=== PATIENT | female | born 1980 | race Caucasian/White ===

== ENCOUNTER 2024-07-27 11:44 | Inpatient (IN) ==
--- NOTE | 2024-07-27 12:38 | Emergency Department Note ---
Impression & Plan Vaginal bleeding ED Provider Note HISTORY OF PRESENT ILLNESS: Patient is a 44-year-old female presenting with vaginal bleeding. Patient had a laparoscopic hysterectomy on 07/12/2024. Reports she been doing well postoperatively until this morning when she had bright red blood start "pouring out of me." She states that she had a little bit of spotting yesterday but when she was getting around for the morning she felt like blood was dripping down her legs and she got on the commode. She states that it was bright red and filled the toilet bowl. She was able to get a pad on with paper towels stuffed into her underwear and stuff towels in between her legs to get to the hospital. She denies any anticoagulation or antiplatelet use. She only soaked through the pad and not through the towels. Denies any lightheadedness or dizziness. Denies any abdominal pain, nausea or vomiting. Patient reports she recently was on antibiotics for a urinary tract infection. ROS: as above PHYSICAL EXAM: Constitutional: Patient appears in no acute distress. HENT: Head: Normocephalic and atraumatic. Eyes: EOMI, PERRL Mouth/Throat: Mucous membranes moist. Neck: Trachea midline. Neck supple. Cardiovascular: RRR, No murmurs, rubs or gallops. Intact distal pulses. Pulmonary/Chest: No respiratory distress. Breath sounds clear and equal bilaterally. No wheezes or rales. Abdominal: Abdomen soft, no tenderness, rebound or guarding. Musculoskeletal: No edema, tenderness or deformity noted. Skin: Warm and dry. No rash, erythema, pallor or cyanosis Psychiatric: Appropriate mood and affect for situation. Neurological: Alert and keenly responsive. CN II-XII grossly intact, moving all extremities equally and fully. MDM: - Vitals signs showed tachycardia - History obtained via patient. History as above. - Chronic conditions affecting care: none - Differential diagnoses include, but are not limited to: post op hematoma; post op abscess; cellulitis; UTI - Order placed for continuous cardiac monitoring. At this time, monitor showed rate of 101 bpm with normal sinus rhythm, per my interpretation. - External medical records reviewed. Operative report dated 07/12/2024 was reviewed. Patient had a robotic assisted laparoscopic hysterectomy and bilateral salpingectomy. - Patient was evaluated by OB, Dr. Escalera who performed a pelvic exam and requested the patient have laboratory and CT imaging workup to rule out a potential collection from her procedure. - Laboratory workup interpreted by myself showed normal WBC; stable electrolytes - CT abdomen/pelvis with IV contrast showed "stable exam with postsurgical inflammatory changes in the low pelvis extending in the vaginal stump adjacent sigmoid colon. Serpiginous small fluid collection is persistent in the recto vesicle space which could represent a postoperative seroma or abscess." - Dr. Escalera down in ER to reassess patient. Offered the patient discharge with oral antibiotics vs admission, patient felt more comfortable with plan for admission for monitoring given her amount of bleeding earlier. Patient to be admitted to OB. IV Zosyn was ordered. ASSESSMENT AND PLAN: Diagnosis: Vaginal bleeding Plan: Admit Past Med/Surg History Problem List (Updated 07/27/24 @ 14:43 by Jo Mayberry MD) Vaginal bleeding (Acute) Vaginal cuff cellulitis Postoperative fever S/P hysterectomy (Acute) Enterovirus infection (Acute) UTI (urinary tract infection) (Acute) Menorrhagia with regular cycle (Acute) Medical History Thyroid nodule monitored, biopsy negative Menorrhagia with regular cycle Seasonal allergies Right ovarian cyst echogenic area seen on ovary resolved Endometrial mass SM fibroid Surgical History Hx of biopsy (07/2023) thyroid nodule, benign H/O dilation and curettage (2022) resection of SM fibroid S/P wisdom tooth extraction S/P tonsillectomy Family History Other No family history of adverse response to anesthesia Denies family history of Ovarian cancer Breast cancer Colorectal cancer Uterine cancer Social History Smoking Status: Never smoker Second Hand Exposure: No; Do You Dip or Chew Tobacco: No; Hx Alcohol Use: Yes Hx Substance Use: No Preferred Language: Serbian Communication 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 Beliefs That Will Affect Care: Hoahaoism Hoahaoism Beliefs: [employer] marital status: Current Living Situation: Spouse and Family Feels Safe at Home: Yes Assistive Devices: None Allergies Allergies Allergy/AdvReac Type Severity Reaction Status Date / Time No Known Drug Allergies Allergy Verified 07/19/24 12:50 Home Meds Home Medications Medication Instructions Recorded Confirmed cetirizine 10 mg tablet (Zyrtec) 10 mg PO QAM 06/29/24 07/19/24 Previous Rx's Medication Instructions Recorded oxycodone-acetaminophen 5 mg-325 1 tab PO Q4H PRN pain #10 tabs 07/12/24 mg tablet (Percocet) Results & Data (ED) Vital Signs Vital Signs - 24 hr 07/27/24 11:52 Temperature 36.4 C L Temperature Source Temporal Artery Scan Pulse Rate 102 H Respiratory Rate 18 Blood Pressure 137/95 Blood Pressure Mean 109 Pulse Oximetry 95 Sepsis Recent Fever Within 48 Hours No Sepsis New/Unexplained Change in Mental Status N/A Sepsis Action Taken by Nursing No Action Required Laboratory Data 07/27/24 12:14 07/27/24 12:14 Lab Results 07/27/24 Range/Units 12:14 WBC 10.22 (4.8-10.8) K/ul RBC 4.43 (4.20-5.40) M/uL Hgb 12.5 (12.0-16.0) g/dl Hct 37.3 (37.0-47.0) % MCV 84.2 (80.0-100.0) fL MCH 28.2 (25.0-34.0) pg MCHC 33.5 (32.0-36.0) g/dL RDW Std Deviation 38.0 (36.4-46.3) fL RDW Coeff of Blake 12.4 (11.5-14.5) % Plt Count 486 H (130-400) K/uL MPV 9.2 L (9.4-12.4) fL Sodium 140 (136-145) mmol/L Potassium 3.9 (3.5-5.1) mmol/L Chloride 106 (98-107) mmol/L Carbon Dioxide 28 (21-32) mmol/L Anion Gap 6 (3-11) BUN 18 (6-23) mg/dl Creatinine 0.72 (0.6-1.2) mg/dl Est Cr Clr Drug Dosing 81.5 ml/min eGFR 105.01 BUN/Creatinine Ratio 25.0 H (10-20) Glucose 90 (70-99(Fasting)) mg/dl Calcium 9.3 (8.6-10.3) mg/dl Total Bilirubin 0.3 (0.2-1.0) mg/dl Direct Bilirubin 0.0 (0-0.2) mg/dl AST 19 (13-39) U/L ALT 37 (7-52) U/L Alkaline Phosphatase 173 H (34-104) U/L Total Protein 7.4 (6.0-8.3) gm/dl Albumin 3.8 (3.4-5.0) gm/dl Globulin 3.6 (2.5-4.0) gm/dl Albumin/Globulin Ratio 1.1 (0.9-2) Administered Medications Discontinued Medications Ioversol (Optiray 320 100ml) 94 ml IV ONCE ONE Stop: 07/27/24 13:16 Last Admin: 07/27/24 13:16 Dose: 94 ml Documented By: RICHMOND Imaging Data Radiologist's Impression: Abdomen/Pelvis CT 07/27/24 12:[address] WITH IV CONTRAST CT DOSE: 786.62 mGy.cm HISTORY: 14 days post tlh bleeding TECHNIQUE: Multiaxial CT images of the abdomen and pelvis were performed following the IV administration of 94 cc of Optiray, sagittal and coronal reconstructions were done. A dose lowering technique was utilized adhering to the principles of ALARA. COMPARISON STUDY: 07/24/2024 FINDINGS: Little interval change has occurred. There continues to be a ill- defined fluid collection in the retrovesical region extending to the vaginal stump where there is some prominent to inflammatory reaction and enhancement. Minor inflammation is present in the adjacent sigmoid colon as previously described. Pelvic tissue planes are obscured. Bilateral ovarian cysts are redemonstrated. The unopacified urinary bladder is grossly negative. There is no air in the bladder. There is no free air. There is no bowel obstruction. There is no ascites. Elsewhere, there is nonspecific discoid atelectasis at the lung bases. There is hepatic steatosis. Multiple hepatic cysts are redemonstrated. The solid organs are otherwise unremarkable. There is a stone identified in the gallbladder without gallbladder wall thickening. There is no aortic aneurysm or periaortic adenopathy. No additional findings are identified in the pelvis. IMPRESSION: Stable exam with postsurgical inflammatory changes in the low pelvis extending to the vaginal stump and adjacent sigmoid colon. A serpiginous small fluid collection is persistent in the retrovesical space. It has not changed in size or configuration. Could represent a postoperative seroma or abscess. Additional nonacute findings described in the body report. ACT 112: Negative or not required by law. The above report was generated using voice recognition software. It may contain grammatical, syntax or spelling errors. Electronically signed by: La Munroe M.D. 07/27/2024 1:48 PM Discharge Plan Visit Data Chief Complaint: Vaginal Bleeding Stated Complaint: VAGINAL BLEEDING, ED Provider: Jo Mayberry Discharge Problem: Vaginal bleeding Forms Stand Alone Forms: Creditable Prescriptions Prescriptions: No Action cetirizine [Zyrtec] 10 mg Tablet 10 mg PO QAM oxycodone-acetaminophen [Percocet] 5-325 mg Tablet 1 tab PO Q4H PRN (Reason: pain) Qty: 10 0RF Referrals Referrals: Zen Lea MD [Primary Care Provider] -
[2024-07-27 12:40] LABS: Hematocrit (blood only) 37.3 % (37.0-47.0); Hemoglobin 12.5 g/dl (12.0-16.0); Mean Corpuscular Hemoglobin 28.2 pg (25.0-34.0); Mean Corpuscular Hgb Conc 33.5 g/dL (32.0-36.0); Mean Corpuscular Volume 84.2 fL (80.0-100.0); Mean Platelet Volume 9.2 fL (9.4-12.4); Platelet Count 486 K/uL (130-400); RDW Coefficient of Variation 12.4 % (11.5-14.5); Red Blood Count 4.43 M/uL (4.20-5.40); White Blood Count 10.22 K/ul (4.8-10.8)
[2024-07-27 12:56] LABS: Albumin Level 3.8 gm/dl (3.4-5.0); Bilirubin,Total 0.3 mg/dl (0.2-1.0); Calcium 9.3 mg/dl (8.6-10.3); Potassium 3.9 mmol/L (3.5-5.1)
[2024-07-27 13:02] LABS: Albumin Globulin Ratio 1.1 (0.9-2); Creatinine Clr Calc Pharmacy 81.5 ml/min; Globulin 3.6 gm/dl (2.5-4.0); Total Protein 7.4 gm/dl (6.0-8.3)
[2024-07-27] MEDS: OPTIRAY 320 100ml IV ONE (13:16)
--- NOTE | 2024-07-27 13:50 | CT Scan Report ---
ABDOMEN AND PELVIS CT WITH IV CONTRAST CT DOSE: 786.62 mGy.cm HISTORY: 14 days post tlh bleeding TECHNIQUE: Multiaxial CT images of the abdomen and pelvis were performed following the IV administrat ion of 94 cc of Optiray, sagittal and coronal reconstructions were done. A dose lowering technique w as utilized adhering to the principles of ALARA. COMPARISON STUDY: 07/24/2024 FINDINGS: Little interval change has occurred. There continues to be a ill-defined fluid collection i n the retrovesical region extending to the vaginal stump where there is some prominent to inflammator y reaction and enhancement. Minor inflammation is present in the adjacent sigmoid colon as previously described. Pelvic tissue planes are obscured. Bilateral ovarian cysts are redemonstrated. The unopac ified urinary bladder is grossly negative. There is no air in the bladder. There is no free air. There is no bowel obstruction. There is no ascites. Elsewhere, there is nonspecific discoid atelectasis at the lung bases. There is hepatic steatosis. Multiple hepatic cysts are redemonstrated. The solid organs are otherwise unremarkable. There is a stone identified in the gallbladder without gallbladder wall thickening. There is no aortic aneurysm or periaortic adenopathy. No additional findings are identified in the pelvis. IMPRESSION: Stable exam with postsurgical inflammatory changes in the low pelvis extending to the vag inal stump and adjacent sigmoid colon. A serpiginous small fluid collection is persistent in the retr ovesical space. It has not changed in size or configuration. Could represent a postoperative seroma o r abscess. Additional nonacute findings described in the body report. ACT 112: Negative or not required by law. The above report was generated using voice recognition software. It may contain grammatical, syntax o r spelling errors. Electronically signed by: La Munroe M.D. 07/27/2024 1:48 PM
--- NOTE | 2024-07-27 14:40 | History & Physical Report ---
Date of Service July 27, 2024 Assessment & Plan (1) Vaginal cuff cellulitis: Plan: I reviewed the CT scan which shows a stable collection either hematoma or abscess her hemoglobin is stable her white count is somewhat improved today I did review the case with her primary surgeon Dr. Arthur as well on the phone I offered the patient a brief trial of outpatient patient antibiotics versus inpatient admission for IV Zosyn patient is concerned with amount of bleeding she had earlier so wishes admission I think this is reasonable we will give us a chance to watch her bleeding over the next 24 hours we discussed if she does not spike a temp and her bleeding improves we could discharge her home on oral antibiotics reviewed the CT scan in depth with the patient and her situation I do not favor abscess at this stage as she is not tender and often does not look sick enough with that being said there is a collection there which I likely favors hematoma regardless a cuff cellulitis may increase bleeding even without drainage from a hematoma or abscess we will start her on Zosyn check a.m. labs total time spent with patient [id number] and reviewing of scans and imaging and labs 75 minutes History of Present Illness Primary Care Provider: Zen Lea MD Patient is postop day 14 from hysterectomy she was assessed for possible collection on 4 days ago at this time it was thought to be more of a hematoma although her white count was slightly elevated she had been on an antibiotic for her UTI but is just finished this. This morning she noticed some increased bleeding and then blood was running down her leg so she presented to the ER currently her bleeding is much less she describes very little pain she had no excessive activity no intercourse and nothing that would trigger a cuff tear her surgery was uncomplicated repeat note is reviewed Allergies Allergy/AdvReac Type Severity Reaction Status Date / Time No Known Drug Allergies Allergy Verified 07/19/24 12:50 Home Medications Medication Instructions Recorded Confirmed Type cetirizine 10 mg tablet (Zyrtec) 10 mg PO QAM 06/29/24 07/19/24 History oxycodone-acetaminophen 5 mg-325 1 tab PO Q4H PRN pain #10 tabs 07/12/24 07/19/24 Rx mg tablet (Percocet) Patient History Medical History Thyroid nodule monitored, biopsy negative Menorrhagia with regular cycle Seasonal allergies Right ovarian cyst echogenic area seen on ovary resolved Endometrial mass SM fibroid Surgical History Hx of biopsy (07/2023) thyroid nodule, benign H/O dilation and curettage (2022) resection of SM fibroid S/P wisdom tooth extraction S/P tonsillectomy Family History Other No family history of adverse response to anesthesia Denies family history of Ovarian cancer Breast cancer Colorectal cancer Uterine cancer Social History Smoking Status: Never smoker Second Hand Exposure: No; Do You Dip or Chew Tobacco: No; Hx Alcohol Use: Yes Hx Substance Use: No Preferred Language: Finnish Communication Ability: 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 Beliefs That Will Affect Care: Hoahaoism Hoahaoism Beliefs: [facility] marital status: Current Living Situation: Spouse and Family Feels Safe at Home: Yes Assistive Devices: None Physical Exam Constitutional: WD/WN, vitals as above well developed and well nourished Respiratory: normal respiratory effort, lungs clear to auscultation normal respiratory effort Cardiovascular: RRR, no murmur, no edema Gastrointestinal (Abdomen): normal bowel sounds, soft, nontender, no hepatosplenomegaly Genitourinary: Sterile exam with nursing present cuff is visualized there is a slight superficial separation but there is absolutely no dehiscence proctoscopy swabs are used to clear out the dark blood and there is very little active bleeding bimanual exam with a sterile glove cuff feels intact there is some firmness not significantly tender Results & Data Vital Signs (Past 12 Hours) Vital Signs Temp Pulse Resp BP Pulse Ox 07/27/24 11:52 97.5 F L 102 H 18 137/95 95 Coding Level of Care Code 31782 INT INP/OBS CARE 3/75MIN Diagnoses Vaginal cuff cellulitis N76.0
[2024-07-27] MEDS: PIPERACILLIN/TAZOBACTAM 4.5 GM/100 ML BAG IV ONE (14:51)
[2024-07-27] MEDS ORDERED: ONDANSETRON INJ 2 MG/ML 2 ML VIAL IV PRN (15:24)
[2024-07-27] MEDS ORDERED: ACETAMINOPHEN 325 MG TAB PO PRN (15:24)
[2024-07-27 15:47] LABS: Appearance Urine Clear (Clear); Bacteria Urine Automated None Seen (None Seen); Bilirubin Urine Negative (Negative); Blood Urine 2+ (Negative); Cast Urine Automated 0-2 /lpf (0-2); Color Urine Yellow; Epithelial Cell Urine Auto 0-2 /hpf (0-2); Glucose Urine UA Negative (Negative); Ketones Urine Negative (Negative); Leukocyte Esterase Urine Negative (Negative); Nitrite Urine Negative (Negative); Protein Urine Negative (Negative); Specific Gravity Urine > 1.045 (1.000-1.030); Urobilinogen Urine Negative (Negative); WBC Urine Automated 0-5 /hpf (0-5)
[2024-07-27] MEDS: PIPERACILLIN/TAZOBACTAM 4.5 GM/100 ML BAG IV SCH (20:59)
[2024-07-27] MEDS: IBUPROFEN 600 MG TAB PO SCH (21:26)
[2024-07-28 06:37] LABS: Basophils # (auto) 0.07 K/uL (0.00-0.20); Basophils % (auto) 0.6 %; Eosinophils # (auto) 0.77 K/uL (0.00-0.50); Eosinophils % (auto) 6.9 %; Hematocrit (blood only) 35.3 % (37.0-47.0); Hemoglobin 11.6 g/dl (12.0-16.0); Immature Granulocytes # (auto) 0.07 K/uL (0.01-0.20); Immature Granulocytes % (auto) 0.6 %; Lymphocytes # (auto) 2.67 K/uL (1.20-3.40); Lymphocytes % (auto) 23.9 %; Mean Corpuscular Hemoglobin 27.4 pg (25.0-34.0); Mean Corpuscular Hgb Conc 32.9 g/dL (32.0-36.0); Mean Corpuscular Volume 83.3 fL (80.0-100.0); Mean Platelet Volume 9.1 fL (9.4-12.4); Monocytes # (auto) 0.67 K/uL (0.11-0.59); Neutrophils # (auto) 6.94 K/uL (1.40-6.50); Platelet Count 457 K/uL (130-400); RDW Coefficient of Variation 12.7 % (11.5-14.5); RDW Standard Deviation 38.7 fL (36.4-46.3); Red Blood Count 4.24 M/uL (4.20-5.40); White Blood Count 11.19 K/ul (4.8-10.8)
--- NOTE | 2024-07-28 07:19 | Gynecologic Progress Note ---
Date of Service July 28, 2024 Assessment & Plan (1) Vaginal bleeding: (2) Vaginal cuff cellulitis: (3) S/P hysterectomy: Plan Pateint remains stable, with stable vitals signs. Minimal bleeding since initial evaluation. Stabel cbc. Afebrile. My plan would be to continue iv antibiotics for 24 hours and then d/c on augmentin and flagyl po (I sent into her pharmacy). She will be seen in the office by Dr. Mai on Friday as I am not in the office the rest of the week and then I will see her next week. Will stay off work until at least 4 weeks postop. INstructions and precautions given. Discussed that she may have more vaginal bleeding but should not be like before. To call with fever or increasing pain. Admission and Anticipated Discharge Date Admission Date: July 27, 2024 Subjective Patient feeling well this am. Notes minimal bleeding overnight. Denies pain. Notes she is voiding without difficulty or pain, which is new. She has been afebrile overnight. NOtes no n/v, no cp/sob. CT scan reviewed. Fluid collection remains with extension to the vaginal cuff with some inflammatory changes. This appears essentially unchanged. WBC is slightly higher today at 11.19, 10.22 yesterday. Review of Systems Review of Systems: All systems reviewed & are unremarkable except as noted in HPI & below Physical Exam Constitutional: WD/WN, vitals as above Cardiovascular: Extremities: no calf tenderness and no edema Gastrointestinal (Abdomen): soft, nt, nd, no masses, incisions c/d/i Psychiatric: A+Ox3, euthymic affect Results & Data Vital Signs (Past 12 Hours) Vital Signs Temp Pulse Resp BP Pulse Ox O2 Del Method 07/28/24 03:35 36.7 C 82 18 103/75 97 Room Air 07/27/24 23:10 37.3 C 80 18 105/69 95 Room Air 07/27/24 19:34 36.8 C 84 18 134/95 99 Room Air PG Care Time/CCT Total # of Minutes Spent Total Time Spent with Patient: Total time spent is greater than 50% in coordination of care (as documented) at patient's floor/unit and/or counseling patient: Coding Level of Care Code 82457 SUB INP/OBS CARE 07/03MIN Diagnoses Vaginal bleeding N93.9 Vaginal cuff cellulitis N76.0 S/P hysterectomy Z90.710
[2024-07-28 13:07] VITALS: TEMP 98.1
[2024-07-28 15:53] VITALS: BP 118/84; PULSE 88; RESP 18; O2SAT 97
--- NOTE | 2024-07-30 14:36 | Discharge Summary ---
Date of Service July 30, 2024 Admission HPI Per Admitting Provider Patient is postop day 14 from hysterectomy she was assessed for possible collection on 4 days ago at this time it was thought to be more of a hematoma although her white count was slightly elevated she had been on an antibiotic for her UTI but is just finished this. This morning she noticed some increased bleeding and then blood was running down her leg so she presented to the ER currently her bleeding is much less she describes very little pain she had no excessive activity no intercourse and nothing that would trigger a cuff tear her surgery was uncomplicated repeat note is reviewed Discharge Data Consultations 07/27/24 14:44 ED Decision to Admit Stat Hospital Course (1) Vaginal cuff cellulitis: Pt was admitted and received 24hrs IV antibiotics for suspected vaginal cuff cellulitis. Bleeding had improved following this and planned for outpt f/u Coding Level of Care Code 50667 IN/OBS DISCH 30 MIN/LESS Diagnoses Vaginal cuff cellulitis N76.0
== END 2024-07-28 19:30 | disposition home or self-care (01) | DRG 761 ==
LOC: ED 11:44 → 4E1 15:25
DX: Z98.890 Other specified postprocedural states; N93.9 Abnormal uterine and vaginal bleeding, unspecified; Z90.710 Acquired absence of both cervix and uterus; N73.2 Unspecified parametritis and pelvic cellulitis